=== PATIENT | female | born 1985 | race Caucasian/White ===

== ENCOUNTER 2021-02-12 16:19 | Emergency (ER) | payer BC ==
[~2021-02-12] VITALS: Ht 167.6 cm; Wt 77.1 kg
--- NOTE | 2021-02-12 16:30 | NUR ---
Patient to ER bed 6 to gown for evaluation. Side rails up. Report given to .
[2021-02-12 16:35] VITALS: BP_SYST 129
--- NOTE | 2021-02-12 16:41 | NUR ---
UP AMBULATING STEADY, RESP UNLABORED, SKIN WARM AND DRY.
--- NOTE | 2021-02-12 16:45 | NUR ---
Pt. came in with c/o RLQ abd. pain X 2 months rate pain 7/10 currently has mild nausea and over the past 2 months has had some days with constipation and other days with diarrhea, on assessment abd. soft, + BS X4
--- NOTE | 2021-02-12 16:53 | NUR ---
ER at bedside examining patient.
[2021-02-12 17:43] LABS: BILIRUBIN,URINE NEGATIVE (NEGATIVE); BLOOD, URINE NEGATIVE (NEGATIVE); CLARITY/URINE CLEAR (CLEAR); COLOR,URINE YELLOW (YELLOW); GLUCOSE,URINE NEGATIVE (NEGATIVE); KETONES,URINE NEGATIVE (NEGATIVE); LEUKOCYTE ESTERASE ,URINE NEGATIVE (NEGATIVE); NITRITE, URINE NEGATIVE (NEGATIVE); PROTEIN URINE NEGATIVE (NEGATIVE); UROBILINOGEN,URINE 0.2 (0.2-1.0)
[2021-02-12 17:59] LABS: BASOPHILS % (AUTO) 0.5 % (0.0-2.0); EOSINOPHILS # (AUTO) 0.1 K/uL (0.0-0.4); EOSINOPHILS % (AUTO) 2.1 % (0.0-4.0); HEMOGLOBIN 13.6 g/dL (12.0-16.0); LYMPHOCYTES # (AUTO) 1.5 K/uL (1.0-5.5); LYMPHOCYTES % (AUTO) 21.8 % (20.5-51.5); MEAN CORPUSCULAR HEMOGLOBIN 31 pg (27-31); MEAN CORPUSCULAR HGB CONC 34 % (32-36); MEAN CORPUSCULAR VOLUME 90 fL (79.0-98.0); MONOCYTES # (AUTO) 0.6 K/uL (0.0-1.0); MONOCYTES % (AUTO) 9.4 % (1.7-9.3); NEUTROPHILS # (AUTO) 4.5 K/uL (1.8-7.7); NEUTROPHILS % (AUTO) 66.2 % (40.0-70.0); PLATELET COUNT (AUTO) 165 K/uL (130-430); RED BLOOD CELL COUNT(AUTO) 4.42 MIL/uL (4.2-6.2); WHITE BLOOD COUNT (AUTO) 6.8 K/uL (4.8-10.8)
[2021-02-12 18:05] LABS: CALCIUM 8.9 mg/dL (8.4-11.0); CREATININE 0.74 mg/dL (0.55-1.30); POTASSIUM 3.8 mmol/L (3.5-5.1)
[2021-02-12 18:07] LABS: TOTAL BILIRUBIN 0.2 mg/dL (0.0-1.0)
[2021-02-12] MEDS ORDERED: DICY10CA13 PO (18:20)
[2021-02-12 18:37] VITALS: BP_SYST 131
--- NOTE | 2021-02-12 18:38 | NUR ---
Patient given written and verbal discharge instructions and verbalizes understanding. ER Dr. Valdez discussed with patient the results and treatment provided. Patient in stable condition. ID arm band removed. IV catheter removed intact and dressing applied, no active bleeding. Rx of dicyclomine given. Patient educated on pain management and to follow up with PMD. Pain Scale 3. Opportunity for questions provided and answered. Medication side effect fact sheet provided.
== END 2021-02-12 18:38 | disposition home or self-care (01) ==
LOC: SED 16:19
DX: R10.30 Lower abdominal pain, unspecified (principal); R19.7 Diarrhea, unspecified
CPT/HCPCS: 36415; 80053; 81003; 81025; 83690; 84703; 85025; 99283

== ENCOUNTER 2021-08-23 21:59 | Emergency (ER) | payer BC ==
[~2021-08-23] VITALS: Ht 167.6 cm; Wt 80.7 kg
[~2021-08-23 21:59] MED LIST: DICY10CA13 PO
[2021-08-23 23:25] VITALS: BP_SYST 122
[2021-08-23] MEDS ORDERED: MORPHINE 4 MG INJ. 4 MG/ML VIAL IVP ONE (23:30)
[2021-08-23] MEDS ORDERED: PROCHLORPERAZINE EDISYLATE 10 MG/2 ML VIAL IVP ONE (23:30)
[2021-08-23] MEDS ORDERED: NACL 0.9% 1,000 ML IV ONE (23:30)
[2021-08-23] MEDS ORDERED: DEXAMETHASONE SOD PHOSPHATE 10 MG/ML VIAL IVP ONE (23:30)
[2021-08-23 23:56] LABS: BASOPHILS # (AUTO) 0.1 K/uL (0.0-0.2); BASOPHILS % (AUTO) 0.8 % (0.0-2.0); EOSINOPHILS # (AUTO) 0.2 K/uL (0.0-0.4); HEMATOCRIT 40.8 % (36-48); HEMOGLOBIN 13.6 g/dL (12.0-16.0); LYMPHOCYTES # (AUTO) 2.4 K/uL (1.0-5.5); LYMPHOCYTES % (AUTO) 34.5 % (20.5-51.5); MEAN CORPUSCULAR HEMOGLOBIN 30 pg (27-31); MEAN CORPUSCULAR HGB CONC 33 % (32-36); MEAN CORPUSCULAR VOLUME 91 fL (79.0-98.0); MONOCYTES # (AUTO) 0.6 K/uL (0.0-1.0); MONOCYTES % (AUTO) 8.7 % (1.7-9.3); NEUTROPHILS # (AUTO) 3.7 K/uL (1.8-7.7); PLATELET COUNT (AUTO) 174 K/uL (130-430); RED BLOOD CELL COUNT(AUTO) 4.49 MIL/uL (4.2-6.2); RED CELL DISTRIBUTION WIDTH 13.3 % (9.0-15.0)
[2021-08-24 00:11] LABS: CALCIUM 8.8 mg/dL (8.4-11.0); CREATININE 0.98 mg/dL (0.55-1.30); POTASSIUM 4.2 mmol/L (3.5-5.1)
[2021-08-24 00:17] LABS: ALBUMIN 3.9 g/dL (3.4-4.8); TOTAL BILIRUBIN 0.2 mg/dL (0.0-1.0)
[2021-08-24] MEDS ORDERED: DIPHENHYDRAMINE INJ 50 MG/ML VIAL IVP ONE (02:15)
[2021-08-24] MEDS ORDERED: HYDR-3917 PO (03:51)
[2021-08-24] MEDS ORDERED: CYCL10TA24 PO (03:51)
[2021-08-24] MEDS ORDERED: PRED20TA PO (03:51)
[2021-08-24 04:30] VITALS: BP_SYST 122
== END 2021-08-24 04:33 | disposition home or self-care (01) ==
LOC: SED 21:59
DX: G44.86 Cervicogenic headache (principal)
CPT/HCPCS: 36415; 70496; 70498; 76376; 80053; 81025 ×2; 85025; 96361; 96374; 96375; 99285; J0780; J1100; J2270; J7030; Q9967